=== PATIENT | male | born 1940 | race Caucasian/White ===

== ENCOUNTER 2018-04-05 06:39 | Inpatient (IN) | payer MEDICARE ==
[~2018-04-05] VITALS: Ht 177.8 cm; Wt 91.8 kg
[~2018-04-05 06:39] MED LIST: AMOXICILLIN/CL875 MG OR; AMOXICILLIN500 MG OR; ASPIRIN EC325 MG PO; CIPROFLOXACN500 MG PO; FISH OIL1000 MG PO; MULTI VIT PO; ROBITUSSIN AC10 ML PO; ROCEPHIN 1 GM1 GM IM; TESSALON200 MG PO; VITAMIN E400 UNIT PO
--- NOTE | 2018-04-05 06:51 | NUR ---
AMBULATED TO ROOM
[2018-04-05 07:34] LABS: HEMATOCRIT 44.4 % (39.0-50.0); IMMATURE GRANULOCYTES 0.3 % (0.0-5.0); MEAN CELL VOLUME 87.2 fL CALC (80.0-100.0); MEAN CORPUSCULAR HGB 30.3 pG CALC (26.0-32.0); MEAN CORPUSCULAR HGB CONC 34.7 g/L CALC (32.0-36.0); NEUT# 7.88 thou/uL (1.82-7.42); RED BLOOD COUNT 5.09 mill/uL (4.70-6.10); RED CELL DISTRI WIDTH 13.4 % (11.5-15.5)
[2018-04-05 07:35] LABS: HEMOGLOBIN 15.4 g/dl (14.0-18.0)
--- NOTE | 2018-04-05 07:37 | NUR ---
MD AT BEDSIDE AND EVALUATED PT. MEDICATED FOR N/V, IV FLUIDS INFUSING. PO AND ENVIRONMENTAL TX IN PROGRESS
[2018-04-05 07:39] LABS: INFLUENZA A NONE DETECTED (NONE DETECT); INFLUENZA B NONE DETECTED (NONE DETECT)
[2018-04-05 07:41] LABS: ALBUMIN 4.6 g/dL (3.2-5.0); ALKALINE PHOSPHATASE 105 u/l (38-126); AMYLASE 65 u/l (30-110); ANION GAP 18 (6-22 (CALC)); BILIRUBIN, TOTAL 1.3 mg/dL (0.0-1.4); BUN 17 mg/dL (8-23); BUN/CREATININE RATIO 19 (12-20 (CALC)); CARBON DIOXIDE 25 mmol/l (22-30); CHLORIDE 104 mmol/l (95-108); CREATININE 0.9 mg/dL (0.7-1.3); GFR > 60 ML/MIN (>=60 (CALC)); GFR FOR AFR.AMER. > 60 ML/MIN (>=60 (CALC)); LIPASE 37 u/l (23-300); POTASSIUM 4.3 mmol/l (3.5-5.1); SGOT/AST 26 u/l (19-48); SODIUM 142 mmol/l (137-146)
--- NOTE | 2018-04-05 08:40 | NUR ---
PT TO XRAY PER W/C
--- NOTE | 2018-04-05 08:51 | NUR ---
TEMP RETAKEN 101.5
--- NOTE | 2018-04-05 09:12 | NUR ---
FLUIDS AND ANTIBIOTICS INFUSING. FAMILY AT BEDSIDE.
[2018-04-05] MEDS ORDERED: METOPROL TAR25 MG PO (10:12)
[2018-04-05] MEDS ORDERED: LIPITOR20 M1 PO ×2 (10:12→11:48)
--- NOTE | 2018-04-05 10:17 | NUR ---
REPORT GIVEN TO MED SURG FOR CONTINUATION OF CARE.
[2018-04-05 10:25] VITALS: BP 99/49
--- NOTE | 2018-04-05 10:25 | NUR ---
PT ARRIVES TO THE FLOOR VIA STRECHER IN STABLE CONDITION WITH GLADYS FERGUSON. PT AMBULATORY WITH STEADY GAIT TO BED. FAMILY SENT TO WAITING ROOM. PT IS A&O x3 ASSESMENT COMPLETED AT THIS TIME(SEE INTERVENTIONS) LUNG SOUNDS DIMINISHED IN THE LOWER LOBES, BOWEL SOUNDS ACTIVE, HEART SOUNDS NORMAL, NO SWELLING OR EDEMA NOTED. #18 IN THE RAC FLUSHES WELL, NO REDNESS OR EDEMA NOTED. PT NOT HAVING ANY PAIN AT THIS TIME, NO NASEA OR VOMITING. ALL NEED MET AT THIS TIME. PT ORIENTED TO ROOM AND CALL KAHN SYSTEM. CALL KAHN IN REACH. WILL CONTINUE TO MONITOR.
--- NOTE | 2018-04-05 10:30 | NUR ---
PT TO FLOOR PER STRETCHER.
[2018-04-05] MEDS ORDERED: METOPROLOL SUCC25 MG PO (11:48)
--- NOTE | 2018-04-05 12:00 | NUR ---
PT EATING LUNCH AT THIS TIME. NO APPARENT DISTRESS NOTED. CALL KAHN IN REACH. WILL CONTINUE TO MONITOR.
[2018-04-05 12:11] LABS: CHOLESTEROL HDL RATIO 3.3 (<4.4 (CALC))
[2018-04-05 12:45] LABS: URINE BILIRUBIN - DIPSTICK NEGATIVE (NEGATIVE); URINE BLOOD DIPSTICK NEGATIVE (NEGATIVE); URINE CLARITY CLEAR; URINE COLOR YELLOW; URINE GLUCOSE - DIPSTICK NEGATIVE (NEGATIVE); URINE KETONE TRACE mg/dL (NEGATIVE); URINE LEUK ESTERASE NEGATIVE (NEGATIVE); URINE NITRITE - DIPSTICK NEGATIVE (Negative); URINE PH 5.5 (4.5-8.0); URINE PROTEIN - DIPSTICK NEGATIVE (NEG-TRACE); URINE UROBILINOGEN - DIPSTICK 0.2 E.U./dL (0.2)
[2018-04-05 12:55] VITALS: BP 96/53
--- NOTE | 2018-04-05 16:00 | NUR ---
PT RESTING IN BED WITH EYES CLOSED. RESPIRATIONS EVEN AND UN LABORED.IV INFUSING WELL. CALL KAHN IN REACH. WILL CONTINUE TO MONITOR.
[2018-04-05 16:45] VITALS: BP 100/59
--- NOTE | 2018-04-05 19:20 | NUR ---
BESIDE REPORT RECEIVED FROM ELLE DAVID. PT RESTING IN BED SEMI FOWLERS; ALERT AND ORIENTED; TALKATIVE. DENIES PAIN CURRENTLY. RESPIRATIONS EVEN AND UNLABORED ON ROOM AIR. CONTINUES TO HAVE THICK YELLOW SPUTUM; LUNGS ARE CLEAR. IV FLUIDS INFUSING WITHOUT DIFFICULTY; IV SITE APPEARS HEALTHY. PLAN OF CARE DISCUSSED. PT ENCOURAGED TO VERABLIZE CONCERNS. STATES UNDERSTANDING. SAFETY MEASURES IN PLACE. CALL LIGHT WITHIN REACH.
[2018-04-05 20:08] VITALS: BP 108/59
[2018-04-06 00:17] VITALS: BP 96/51
--- NOTE | 2018-04-06 00:18 | NUR ---
PT AWAKENS SPONTANEOUSLY FOR VS AND MEDICATION; LAB AT BEDSIDE. PT C/O MILD CHRONIC BACK PAIN, BUT DOES NOT REQUEST ANY PAIN MEDICATION. RESPIRATIONS EVEN AND UNLABORED. HEART RATE HAS BEEN 101-105 BPM THIS SHIFT; PT RECEIVED SOLUMEDROL AND BREATHING TREATMENT. IV FLUIDS INFUSING WITHOUT DIFFICULTY; IV SITE APPEARS HEALTHY. PT IS INDEPENDENT IN ROOM AND USES URINAL. SAFETY MEASURES IN PLACE. CALL LIGHT WITHIN REACH.
[2018-04-06 04:00] VITALS: BP 103/60; BP 120/66
--- NOTE | 2018-04-06 04:23 | NUR ---
NO ACUTE CHANGES IN CONDITION THROUGHOUT THE NIGHT. CALL LIGHT WITHIN REACH.
--- NOTE | 2018-04-06 07:01 | NUR ---
BEDSIDE REPORT RECEIVED BY GAL. PT IS SITTING IN THE SIDE OF THE BED WITH NO S/S OF DISTRESS NOTED. PT DENIES NEEDS AT THIS TIME. CALL LIGHT IN REACH.
[2018-04-06 07:27] VITALS: BP 105/59
--- NOTE | 2018-04-06 08:05 | NUR ---
PT IS SITTING IN THE SIDE OF THE BED. ASSESSMENT DONE. PT IS A&O X3. LUNGS SOUND DIMINISHED. TELE IN PLACE. PT STATED PAIN IN BACK 2/10 THAT COMES AND GOES BUT DENIES PAIN MEDICATION AT THIS TIME. NS 100ML/HR INFUSING WELL. SAFETY PRECAUTIONS REINFORCED AND CALL LIGHT IN REACH.
[2018-04-06 11:19] VITALS: BP 107/54
--- NOTE | 2018-04-06 11:48 | NUR ---
PT SITTING IN THE SIDE OF THE BED EATING HIS LUNCH. PT DENIES ANY NEEDS AT THIS TIME. TELE IN PLACE. CALL LIGHT IN REACH.
[2018-04-06 12:05] LABS: ANION GAP 12 (6-22 (CALC)); BUN 15 mg/dL (8-23); BUN/CREATININE RATIO 18 (12-20 (CALC)); CARBON DIOXIDE 23 mmol/l (22-30); CHLORIDE 110 mmol/l (95-108); CREATININE 0.8 mg/dL (0.7-1.3); GFR > 60 ML/MIN (>=60 (CALC)); GFR FOR AFR.AMER. > 60 ML/MIN (>=60 (CALC)); POTASSIUM 3.5 mmol/l (3.5-5.1); SODIUM 141 mmol/l (137-146)
[2018-04-06 15:22] VITALS: BP 106/54
--- NOTE | 2018-04-06 16:05 | NUR ---
PT IS RESTING IN BED WITH NO S/S OF DISTRESS NOTED. PT IS ALSO VISITING IN ROOM WITH FAMILY. PT DENIES ANY NEEDS AT THIS TIME. CALL LIGHT IN REACH.
[2018-04-06 19:00] VITALS: BP 117/68
--- NOTE | 2018-04-06 19:24 | NUR ---
BEDSIDE REPORT RECEIVED FROM MARTY TORRES. PT SITTING UP IN BED READING; ALERT AND ORIENTED. C/O MILD BACK PAIN. RESPIRATIONS EVEN AND UNLABORED ON ROOM AIR. STATES THAT PRODUCTIVE COUGH HAS DECREASED; NOW WITH MINIMAL THICK YELLOW SPUTUM. RESPIRATIONS EVEN AND UNLABORED. PLAN OF CARE REVIEWED. PT ENCOURAGED TO VERBALIZE CONCERNS. STATES UNDERSTANDING. SAFETY MEASURES IN PLACE. CALL LIGHT WITHIN REACH.
--- NOTE | 2018-04-07 00:14 | NUR ---
PT RESTING IN BED SEMI FOWLERS ON CELL PHONE; ALERT AND ORIENTED. VS STABLE; MEDICATION GIVEN. PT CONTINUES TO DENY PAIN. RESPIRATIONS EVEN AND UNLABORED WITH PRODUCTIVE COUGH. IV FLUIDS INFUSING WITHOUT DIFFICULTY; IV SITE APPEARS HEALTHY. INDEPENDENT IN ROOM; USES URINAL AT BEDSIDE. NO REQUESTS OR CONCERNS AT THIS TIME. PT VERBALIZES HIS APPRECIATION FOR STAFF. CALL LIGHT WITHIN REACH.
[2018-04-07 00:19] VITALS: BP 134/74
--- NOTE | 2018-04-07 00:26 | NUR ---
PT ASLEEP AT THIS TIME; AWAKENS TO TACTILE STIMULI. VS STABLE AND PT ASSISTED TO BSC TO VOID; NO EPISODES OF INCONTINENCE THIS SHIFT. DENIES PAIN. RESPIRATIONS EVEN AND UNLABORED ON ROOM AIR. IV FLUIDS INFUSING WITHOUT DIFFICULTY; IV SITE APPEARS HEALTHY. PT REMAINS ON BED ALARM AND ONE PERSON ASSIST TO BSC. SAFETY MEASURES IN PLACE. CALL LIGHT WITHIN REACH.
--- NOTE | 2018-04-07 04:22 | NUR ---
NO ACUTE CHANGES IN CONDITION THROUGHOUT THE NIGHT. CALL LIGHT WITHIN REACH.
[2018-04-07 04:31] LABS: MEAN CELL VOLUME 88.8 fL CALC (80.0-100.0); MEAN CORPUSCULAR HGB 30.5 pG CALC (26.0-32.0); MEAN CORPUSCULAR HGB CONC 34.3 g/L CALC (32.0-36.0); RED BLOOD COUNT 3.94 mill/uL (4.70-6.10); RED CELL DISTRI WIDTH 14.3 % (11.5-15.5)
[2018-04-07 04:49] LABS: ANION GAP 11 (6-22 (CALC)); BUN 16 mg/dL (8-23); BUN/CREATININE RATIO 20 (12-20 (CALC)); CARBON DIOXIDE 23 mmol/l (22-30); CHLORIDE 112 mmol/l (95-108); CREATININE 0.8 mg/dL (0.7-1.3); GFR > 60 ML/MIN (>=60 (CALC)); GFR FOR AFR.AMER. > 60 ML/MIN (>=60 (CALC)); SODIUM 142 mmol/l (137-146)
[2018-04-07 04:53] LABS: POTASSIUM 4.3 mmol/l (3.5-5.1)
[2018-04-07 04:57] VITALS: BP 145/72
--- NOTE | 2018-04-07 07:17 | NUR ---
REPORT RECEIVED FROM MARTY NESS, PT SITTING UP IN RECLINER, AWAKE, ALERT NO S/S OF DISTRESS NOTED.
[2018-04-07 08:09] VITALS: BP 138/79
--- NOTE | 2018-04-07 08:12 | NUR ---
ASSESSMENT COMPLETED; PT SITTING UP IN THE RECLINER, A/O X3; PT EXIBIT NO COUGH; VOICED NO COMPLAINS; PT VERY PLEASANT AND FRIENDLY; TALKS A LOT; RESP EVEN AND UNLABORED; LUNGS DIMINISHED IN BASES; ACTIVE BOWEL SOUNDS; PULSES STRONG; NO EDEMA NOTED; IVF INFUSING NS @ 100CC/HR, SITE APPEARS HEALTHY; TELE IN PLACE; PT COMPLAIN OF NO PAIN; SAFETY PRECAUTION REINFORCED; CALL LIGHT & URINAL IN REACH. WILL CONTINUE TO MONITOR.
--- NOTE | 2018-04-07 08:57 | NUR ---
MORNING MEDS GIVEN PER EMAR, PT HAD NO DIFFICULTY TAKING MEDS.
--- NOTE | 2018-04-07 11:05 | NUR ---
DR CESPEDES AND ATTILA CASANOVA AT BED SIDE TO DISCUSS POC; DR MARINO IVF STOPPED; BLADDER SCAN OBTAINED SHOWS 409ML URINE IN BLADDER; PT ADVISED TO URINE, OBTAINED 250CC URINE.
--- NOTE | 2018-04-07 11:50 | NUR ---
PT SITTING UP IN RECLINER VISITNG WITH HIS ; PT VOICED NO CONCERNS, HAS NO PAIN; RESP EVEN AND UNLABORED; CALL KAHN IN REACH.
[2018-04-07 12:00] VITALS: BP 132/76
--- NOTE | 2018-04-07 14:56 | NUR ---
PT SITTING UP IN RECLINER EATING A SANDWICH. NO S/S OF ANY DISTRESS NOTED.
[2018-04-07 15:00] VITALS: BP 157/82
--- NOTE | 2018-04-07 16:00 | NUR ---
FAMILY MEMBERS AT BEDSIDE ASKING QUESTIONS REGARDING PT CARE, TESTING AND PLAN OF CARE, WITH PATIENT PERMISSION ALL QUESTIONS ANSWERED AND PT & FAMILY MEMBERS VERBALIZE UNDERSTANDING. REMAINS SITTING UP IN RECLINER AND CALL KAHN WITHIN REACH
--- NOTE | 2018-04-07 17:54 | NUR ---
PT SITTING UP EDGE OF BED TAKING ON THE PHONE AND EATING SUPPER; RESP EVEN AND UNLABORED; IV SL, SITE FLUSHED FREELY;
[2018-04-07 19:38] VITALS: BP 131/60
--- NOTE | 2018-04-07 19:50 | NUR ---
PT IN BED A/O X3, RESPIRATIONS EVEN AND UNLABORED ON RA, DENIES CHEST PAIN OR DISCOMFORT. LUNG SOUNDS CLEAR WITH DIMINISHED BASES BILAT. TELE IN PLACE MONITORED IN ER. ENCOURAGED TO USE CALL LIGHT FOR ASSISTNACE, WILL CONTINUE TO MONITOR.
--- NOTE | 2018-04-07 23:37 | NUR ---
RESPIRATIONS EVEN AND UNLABORED, WAKES EASILY, PEPCID PROVIDED AT THIS TIME PER MAR. PO FLUIDS IN REACH, ENCOURAGED TO USE CALL LIGHT FOR ASSISTANCE.
[2018-04-08 00:21] VITALS: BP 141/78
--- NOTE | 2018-04-08 02:00 | NUR ---
RESTING WITH EYES CLOSED, VERY LIGHT SLEEPER, DENIES PAIN OR DISCOMFORT, RESPIRATIONS EVEN AND UNLABORED.
--- NOTE | 2018-04-08 04:40 | NUR ---
MORNING LABS DRAWN BY PRESSURE STEAMER TENDER, TOLERATED WELL.
[2018-04-08 04:45] VITALS: BP 143/85
[2018-04-08 05:26] LABS: HEMATOCRIT 37.7 % (39.0-50.0); HEMOGLOBIN 12.9 g/dl (14.0-18.0); IMMATURE GRANULOCYTES 1.7 % (0.0-5.0); MEAN CELL VOLUME 88.3 fL CALC (80.0-100.0); MEAN CORPUSCULAR HGB 30.2 pG CALC (26.0-32.0); MEAN CORPUSCULAR HGB CONC 34.2 g/L CALC (32.0-36.0); NEUT# 10.89 thou/uL (1.82-7.42); RED BLOOD COUNT 4.27 mill/uL (4.70-6.10); RED CELL DISTRI WIDTH 14.4 % (11.5-15.5)
[2018-04-08 05:43] LABS: ALKALINE PHOSPHATASE 69 u/l (38-126); ANION GAP 11 (6-22 (CALC)); BILIRUBIN, TOTAL 0.4 mg/dL (0.0-1.4); BUN 18 mg/dL (8-23); BUN/CREATININE RATIO 24 (12-20 (CALC)); CARBON DIOXIDE 26 mmol/l (22-30); CHLORIDE 109 mmol/l (95-108); CREATININE 0.8 mg/dL (0.7-1.3); GFR > 60 ML/MIN (>=60 (CALC)); GFR FOR AFR.AMER. > 60 ML/MIN (>=60 (CALC)); MAGNESIUM 2.1 mg/dL (1.6-2.3); POTASSIUM 4.2 mmol/l (3.5-5.1); SODIUM 141 mmol/l (137-146)
[2018-04-08 05:45] LABS: ALBUMIN 3.4 g/dL (3.2-5.0); SGOT/AST 51 u/l (19-48); TOTAL PROTEIN 6.3 g/dL (6.3-8.2)
--- NOTE | 2018-04-08 07:00 | NUR ---
SHIFT CHANGE REPORT FROM DANISH WILSON AWAKE ALERT AND ORIENTED SITTING UP IN RECLINER, DENIED PAIN, TELE MONITOR IN PLACE, CALL KAHN IN REACH.
[2018-04-08 08:53] VITALS: BP 158/78
[2018-04-08 11:15] VITALS: BP 117/65
--- NOTE | 2018-04-08 12:00 | NUR ---
SITTING UP IN RECLINER, ATE MEAL, ALL NEEDS ADDRESSED, ANXIOUS TO GO HOME, SPOUSE IN ROOM AT THIS TIME AWAITING D/C INSTRUCTIONS MD INFORMED PT WILL BE LEAVING TODAY.
[2018-04-08] MEDS ORDERED: IPRATROPIU0.5 MG/3 M NEB (15:36)
[2018-04-08] MEDS ORDERED: DOXYCYCL HYC100 MG PO (15:39)
[2018-04-08] MEDS ORDERED: COMBIVENT RESPIMAT IN (15:41)
--- NOTE | 2018-04-08 16:41 | NUR ---
Discharge instructions given. Patient verbalizes understanding of same. Discharged in stable condition via Ambulatory to Home with spouse. All belongings sent with pt.
== END 2018-04-08 16:42 | disposition home or self-care (01) | DRG 194 ==
LOC: ED 06:39 → ED-I 09:31 → ED 09:46 → MS2 09:47
PROVIDERS: Emergency Medicine; Nurse Practitioner Family; ADMIT Internal Medicine; ATTEND Internal Medicine Nephrology
DX: J18.9 Pneumonia, unspecified organism (principal); J44.0 Chronic obstructive pulmonary disease with (acute) lower respiratory infection; J44.1 Chronic obstructive pulmonary disease with (acute) exacerbation; E78.5 Hyperlipidemia, unspecified; I10 Essential (primary) hypertension; N40.1 Benign prostatic hyperplasia with lower urinary tract symptoms; R33.8 Other retention of urine; R35.0 Frequency of micturition; R35.1 Nocturia; R97.20 Elevated prostate specific antigen [PSA]; N28.1 Cyst of kidney, acquired; M54.9 Dorsalgia, unspecified; G89.29 Other chronic pain; Z95.3 Presence of xenogenic heart valve
CPT/HCPCS: G0378; J1650; Q9967

== ENCOUNTER → 2018-07-03 | Outpatient (REF) | payer MEDICARE ==
[~2018-07-03] MED LIST changes: +COMBIVENT RESPIMAT IN; +DOXYCYCL HYC100 MG PO; +IPRATROPIU0.5 MG/3 M NEB; +LIPITOR20 M1 PO; +METOPROL TAR25 MG PO; +METOPROLOL SUCC25 MG PO
[2018-07-03 08:35] LABS: ALKALINE PHOSPHATASE 66 u/l (38-126); ANION GAP 13 (6-22 (CALC)); BUN 19 mg/dL (8-23); BUN/CREATININE RATIO 19 (12-20 (CALC)); CALCULATED LDLCHOLESTEROL 76 mg/dL (62-129 (CALC)); CARBON DIOXIDE 31 mmol/l (22-30); CHLORIDE 103 mmol/l (95-108); CHOLESTEROL HDL RATIO 2.9 (<4.4 (CALC)); GFR > 60 ML/MIN (>=60 (CALC)); GFR FOR AFR.AMER. > 60 ML/MIN (>=60 (CALC)); HDL CHOLESTEROL 47 mg/dL (>=40); POTASSIUM 4.2 mmol/l (3.5-5.1); SGOT/AST 21 u/l (19-48); SODIUM 142 mmol/l (137-146); TOTAL CHOLESTEROL 137 mg/dl (0-199); TOTAL TRIGLYCERIDES 65 mg/dl (30-149); VLDL CHOLESTROL 13 mg/dl (0-38 (CALC))
[2018-07-03 08:40] LABS: HEMATOCRIT 43.4 % (39.0-50.0); HEMOGLOBIN 14.7 g/dl (14.0-18.0); MEAN CELL VOLUME 89.1 fL CALC (80.0-100.0); MEAN CORPUSCULAR HGB 30.2 pG CALC (26.0-32.0); MEAN CORPUSCULAR HGB CONC 33.9 g/L CALC (32.0-36.0); RED BLOOD COUNT 4.87 mill/uL (4.70-6.10); RED CELL DISTRI WIDTH 13.3 % (11.5-15.5)
[2018-07-03 09:02] LABS: TSH, 3RD GENERATION 2.74 uIU/mL (0.47 - 4.68)
[2018-07-03 09:13] LABS: ALBUMIN 4.4 g/dL (3.2-5.0)
== END | disposition home or self-care (01) ==
LOC: LAB 07:35
PROVIDERS: ATTEND Internal Medicine
DX: I10 Essential (primary) hypertension (principal); E78.49 Other hyperlipidemia; E03.9 Hypothyroidism, unspecified; R53.83 Other fatigue; E11.65 Type 2 diabetes mellitus with hyperglycemia; E55.9 Vitamin D deficiency, unspecified

== ENCOUNTER 2019-05-11 09:18 | Observation (INO) | payer MEDICARE ==
[~2019-05-11] VITALS: Ht 177.8 cm; Wt 85.5 kg
--- NOTE | 2019-05-11 09:46 | NUR ---
PT TO ROOM VIA WC
--- NOTE | 2019-05-11 10:25 | NUR ---
PT COMPLAINS OF COUGH AND COLD LIKE SYMPTOMS ON AND OFF WIOTH FEVER FOR 3 WEEKS, STATES IT COMES AND GOES BUT GOT REAL BAD LAST NIGHT SO HE CAME IN THIS AM. DAUGHTER AT SIDE
[2019-05-11 11:12] LABS: HEMATOCRIT 39.3 % (39.0-50.0); HEMOGLOBIN 13.2 g/dl (14.0-18.0); IMMATURE GRANULOCYTES 0.2 % (0.0-5.0); MEAN CORPUSCULAR HGB 30.6 pG CALC (26.0-32.0); MEAN CORPUSCULAR HGB CONC 33.6 g/L CALC (32.0-36.0); NEUT# 3.53 thou/uL (1.82-7.42); RED BLOOD COUNT 4.32 mill/uL (4.70-6.10); RED CELL DISTRI WIDTH 13.1 % (11.5-15.5)
[2019-05-11 11:30] LABS: ANION GAP 14 (6-22 (CALC)); BUN 15 mg/dL (8-23); BUN/CREATININE RATIO 15 (12-20 (CALC)); CARBON DIOXIDE 25 mmol/l (22-30); CHLORIDE 103 mmol/l (95-108); GFR > 60 ML/MIN (>=60 (CALC)); GFR FOR AFR.AMER. > 60 ML/MIN (>=60 (CALC)); POTASSIUM 4.6 mmol/l (3.5-5.1); SODIUM 138 mmol/l (137-146)
--- NOTE | 2019-05-11 11:30 | NUR ---
PT AWARE OF PLANNED ADMISSION AND IV ACCESS OBTAINED AND IV ABT ORDERED, PT TOLERATED WELL, OFFERS NO NEW COMPLAINTS, NO S/S OF DISTRESS OR DISCOMFORT, CALL KAHN WITHIN REACH.
--- NOTE | 2019-05-11 11:50 | NUR ---
AT BEDSIDE TO DISCUSS PLAN OF CARE INCLUDING ADMISSIONA ND MEDICATIONS, DAUGHTER AT BEDSIDE PT VERBALIZES UNDERSTANDING.
[2019-05-11] MEDS ORDERED: ALDACTONE25 MG PO (12:05)
[2019-05-11] MEDS ORDERED: FINASTERIDE5 MG PO (12:05)
--- NOTE | 2019-05-11 13:07 | NUR ---
STANDING AT BEDSIDE FOR URINAL USAGE.
--- NOTE | 2019-05-11 13:46 | NUR ---
REPORT CALLED TO NELIDA FERGUSON ROOM 272 AND [address]LE [id number] ASSIGNED
--- NOTE | 2019-05-11 13:50 | NUR ---
PT ARRIVED TO FLOOR VIA WC ACCOMPANIED BY ED STAFF X 1. PT TRANSFERED TO BED WITH STANDBY ASSIST. STEADY GAIT. REPORTS GENERALIZED WEAKNESS. DENIES PAIN. REPORTING OF CONCERNS ENCOURAGED. PT ORIENTED TO ROOM AND EQUIPMENT. CALL LIGHT REVIEWED AND IN REACH. PLAN OF CARE DISCUSSED. HISTORY AND ASSESSMENT COMPLETED. PT. ALERT AND ORIENTED. SKIN INTACT. LUNGS CLEAR. NON-PRODUCTIVE COUGH, REPORTS GREEN SPUTUM IN PAST DAYS AT HOME. NO SOB. NO CP. REGULAR HEART SOUNDS. #20 RAC, FREE OF REDNESS/SWELLING. PT STATES UNDERSTANDING OF INFORMATION.
--- NOTE | 2019-05-11 13:55 | NUR ---
PT TRASNPORTED TO MED SURG VIA WHEELCHAIR ALL BELONGINGS SENT WITH PT, DAUGHTER AT SIDE
[2019-05-11 14:06] VITALS: BP 109/66
--- NOTE | 2019-05-11 15:38 | NUR ---
DR. MAYNARD IN TO SEE PT AT THIS TIME. PLAN OF CARE UPDATED.
--- NOTE | 2019-05-11 18:19 | NUR ---
DAUGHTER AT BEDSIDE. PT DENIES COMPLAINTS AT THIS TIME. NS @ 100 ML/HR INFUSING #20 RAC W/O DIFFICULTY. CALL LIGHT WITHIN REACH.
[2019-05-11 18:45] VITALS: BP 141/57
--- NOTE | 2019-05-11 19:15 | NUR ---
REPORT RECEIVED FROM MARTY KRAUSE. PT RESTING IN BED, NO S/S OF DISTRESS AT THIS TIME. SAFETY PRECAUTIONS IN PLACE. WILL CONTINUE TO MONITOR.
--- NOTE | 2019-05-11 21:30 | NUR ---
PT RESTING IN BED, ALERT AND ORIENTED. RESPIRATIONS EVEN AND UNLABORED, LUNGS SOUND CLEAR. PT DENIES ANY PAIN OR DISCOMFORT. PEDAL PULSES STRONG. TELE IN PLACE. #20 RAC PATENT AND APPEARS HEALTHY. CALL KAHN WITHIN REACH. WILL CONTINEU TO MONITOR.
[2019-05-12] VITALS (7 sets, daily range): BP systolic 99–143; BP diastolic 59–78
--- NOTE | 2019-05-12 | NUR ---
PT RESTING IN BED RESPIRATIONS EVEN AND UNLABORED. NO S/S OF DISTRESS AT THIS TIME. WILL CONTINUE TO MONITOR.
[2019-05-12 05:07] LABS: HEMOGLOBIN 13.4 g/dl (14.0-18.0); IMMATURE GRANULOCYTES 0.5 % (0.0-5.0); MEAN CELL VOLUME 90.7 fL CALC (80.0-100.0); MEAN CORPUSCULAR HGB 30.4 pG CALC (26.0-32.0); MEAN CORPUSCULAR HGB CONC 33.5 g/L CALC (32.0-36.0); NEUT# 3.17 thou/uL (1.82-7.42); RED BLOOD COUNT 4.41 mill/uL (4.70-6.10); RED CELL DISTRI WIDTH 12.7 % (11.5-15.5)
--- NOTE | 2019-05-12 08:00 | NUR ---
PT SITTING ON EDGE OF BED. NO RESP DISTRESS NOTED. DENIES SHORTNESS OF BREATH OR PAIN AT THIS TIME. ASSESSMENT COMPLETED. WILL CONTINUE TO MONITOR. CALL LIGHT WITHIN REACH.
--- NOTE | 2019-05-12 12:23 | NUR ---
PT SITTING UP IN CHAIR. NO RESP. DISTRESS NOTED. NO COMPLAINTS VOICED. IV FLUIDS INFUSING WITHOUT DIFFICULTY. WILL CONTINUE TO MONITOR. CALL LIGHT WITHIN REACH.
--- NOTE | 2019-05-12 19:00 | NUR ---
PAPER BAG MAKING MACHINIST ASSUMED CARE. PT NOTED SITTING UP IN BED. ALERT AND ORIENTED. NO APPARENT DISTRESS NOTED. PT DENIES ANY PAIN OR DISCOMFORT. IV SITE APPEARS HEALTHY. DISCUSSED POC. PT VERBALIZED UNDERSTANDING. CALL LIGHT WITHIN REACH. WILL CONTINUE TO MONITOR.
--- NOTE | 2019-05-12 21:33 | NUR ---
PRN COUGH MEDICATION ADMINISTERED UPON REQUEST.
--- NOTE | 2019-05-12 23:45 | NUR ---
PT RESTING IN BED. NO APPARENT DISTRESS NOTED. PT MEDICATED ORDERED. CONTINUES TO HAVE NONPRODUCTIVE COUGH AT THIS TIME. PT DENIES ANY CURRENT WANTS OR NEEDS. CALL LIGHT WITHIN REACH. WILL CONTINUE TO MONITOR.
--- NOTE | 2019-05-13 03:20 | NUR ---
PT RESTING IN BED WITH EYES CLOSED. NO APPARENT DISTRESS NOTED. CALL LIGHT WITHIN REACH. WILL CONTINUE TO MONITOR.
[2019-05-13 03:50] VITALS: BP 121/71
[2019-05-13 05:20] LABS: HEMATOCRIT 37.7 % (39.0-50.0); HEMOGLOBIN 12.8 g/dl (14.0-18.0); MEAN CELL VOLUME 91.3 fL CALC (80.0-100.0); RED BLOOD COUNT 4.13 mill/uL (4.70-6.10); RED CELL DISTRI WIDTH 13.1 % (11.5-15.5)
--- NOTE | 2019-05-13 07:00 | NUR ---
WRITTEN REPORT RECEIVED FROM ELLE CRUZ;PT APPEARS TO BE SLEEPING IN SEMI FOWLERS POSITION;RESPIRATIONS EVEN AND UNLABORED RA;NO S/S OF DISTRESS NOTED;TELE MONITORING IN PLACE;IV FLUIDS INFUSING WITH EASE PER ORDER;ALL SAFETY PRECAUTIONS REINFORCED WITH BED IN THE LOWEST POSITION AND CALL LIGHT IN REACH;WILL CONTINUE TO MONITOR
[2019-05-13 07:56] VITALS: BP 137/75
--- NOTE | 2019-05-13 08:00 | NUR ---
PT RESTING IN SEMI FOWLERS POSITION,A&O X3;VS OBTAINED AND ASSESSMENT COMPLETED;PT DENIES ANY CURRENT PAIN OR DISCOMFORTS,PAIN SCALE AND REPORTING EDUCATED;RESPIRATIONS EVEN AND UNLABORED RA,CLEAR/DIMINISHED LUNG SOUNDS NOTED;NON-PRODUCTIVE COUGH NOTED AT TIMES;ABDOMEN SOFT ON PALPATION AND ACTIVE IN ALL 4 QUADRANTS;STRONG PEDAL PULSES;SKIN INTACT;TELE MONITORING IN PLACE;#20G TO RAC INFUSING NS @ 100ML/HR,SITE APPEARS HEALTHY;PT DENIES ANY ADDITIONAL NEEDS AT THIS TIME AND IS ENCOURAGED TO CALL FOR ASSISTANCE IF NEEDED;FALL PRECAUTIONS IN PLACE WITH BED IN THE LOWEST POSITION AND CALL LIGHT IN REACH;WILL CONTINUE TO MONITOR
[2019-05-13 10:57] VITALS: BP 135/78
--- NOTE | 2019-05-13 11:40 | NUR ---
ALEXANDER,ANRP AT BEDSIDE
--- NOTE | 2019-05-13 11:45 | NUR ---
PT RESTING IN SEMI FOWLERS POSITION;RESPIRATIONS EVEN AND UNLABORED ON RA;PT DENIES ANY CURRENT PAIN OR DISCOMFORTS;TELE MONITORING IN PLACE;IV FLUIDS INFUSING TO RAC WITH EASE AND IV ABX ADMINISTERED AT THIS TIME;PT DENIES ANY ADDITIONAL NEEDS AT THIS TIME AND IS ENCOURAGED TO CALL FOR ASSISTANCE IF NEEDED;FALL PRECAUTIONS IN PLACE WITH CALL LIGHT IN REACH;WILL CONTINUE TO MONITOR
[2019-05-13 14:30] VITALS: BP 117/72
[2019-05-13 14:45] VITALS: BP 117/72
--- NOTE | 2019-05-13 15:07 | NUR ---
AT BEDSIDE DISCUSSING POC WITH PATIENT.
--- NOTE | 2019-05-13 15:50 | NUR ---
PT OOB RESTING IN RECLINER;RESPIRATIONS EVEN AND UNLABORED ON RA;PT DENIES ANY CURRENT PAIN OR DISCOMFORTS;IV FLUIDS CONTINUE TO INFUSE TO RAC WITH EASE;TELE MONITORING IN PLACE;PT VERBALIZES UNDERSTANDING ON PLANS TO D/C HOME THIS EVENING;AWAITING DISCHARGE ORDERS;PT DENIES ANY ADDITIONAL NEEDS AT THIS TIME AND IS ENCOURAGED TO CALL FOR ASSISTANCE IF NEEDED;CALL LIGHT IN REACH;WILL CONTINUE TO MONITOR
[2019-05-13] MEDS ORDERED: KEFLEX500 M1 PO (16:45)
[2019-05-13] MEDS ORDERED: PREDNISONE50 MG PO (16:45)
[2019-05-13] MEDS ORDERED: ZITHROMAX500 MG PO (16:45)
--- NOTE | 2019-05-13 17:39 | NUR ---
ALL DISCHARGE INSTRUCTIONS PROVIDED AT THIS TIME;PT INSTRUCTED TO FOLLOW UP WITH PCP IN 1 WEEK AND TAKE RX PRESCRIBED.RX FOR ZITHRO,KEFLEX AND PREDNISONE PROVIDED AND PT VERBALIZES UNDERSTANDING;IV SITE REMOVED WITH CATHETER INTACT AND TELE D/C;PT DENIES ANY ADDITIONAL NEEDS AT THIS TIME;PT REFUSES WC FOR D/C HOME;FAMILY TO TRANSPORT PT HOME.
--- NOTE | 2019-05-13 17:41 | NUR ---
Discharge instructions given. Patient verbalizes understanding of same. Discharged in stable condition via Ambulatory to Home with family. All belongings sent with pt. PT AMBULATED TO [facility] IN STABLE CONDITION ACCOMPANIED BY FAMILY MEMBER FOR D/C HOME.
== END 2019-05-13 17:41 | disposition home or self-care (01) ==
LOC: ED 09:18 → ED-I 11:52 → ED 12:05 → MS2 12:06
PROVIDERS: Family Medicine; Nurse Practitioner Family; ADMIT Internal Medicine; ATTEND Internal Medicine
DX: J20.9 Acute bronchitis, unspecified (principal); E78.5 Hyperlipidemia, unspecified; N40.0 Benign prostatic hyperplasia without lower urinary tract symptoms; Z95.3 Presence of xenogenic heart valve; R94.31 Abnormal electrocardiogram [ECG] [EKG]; R06.00 Dyspnea, unspecified
CPT/HCPCS: G0378; J1650

== ENCOUNTER 2021-04-18 06:44 | Day surgery (SDC) | payer MEDICARE ==
[~2021-04-18] VITALS: Ht 177.8 cm; Wt 74.8 kg
[~2021-04-18 06:44] MED LIST changes: +ALDACTONE25 MG PO; +ASPIRIN81 MG PO; +FINASTERIDE5 MG PO; +KEFLEX500 M1 PO; +PREDNISONE50 MG PO; +VITAMIN7 PO; +ZITHROMAX500 MG PO
[2021-04-18 09:04] VITALS: BP 133/60
== END 2021-04-18 09:35 | disposition home or self-care (01) ==
LOC: ENDO 06:44 → ORM 09:30 → ENDO 09:35 → ORM 10:45
PROVIDERS: ATTEND Surgery
PROC: 0DJD8ZZ Inspection of Lower Intestinal Tract, Via Natural or Artificial Opening Endoscopic (ICD-10-PCS; principal; 2021-04-18)
DX: Z12.11 Encounter for screening for malignant neoplasm of colon (principal); Z86.010 Personal history of colon polyps; Z95.2 Presence of prosthetic heart valve
CPT/HCPCS: G0105

== ENCOUNTER 2022-11-03 14:43 | Observation (INO) | payer MEDICARE ==
[2022-11-03] VITALS (10 sets, daily range): BP systolic 114–160; BP diastolic 58–81
[~2022-11-03] VITALS: Ht 177.8 cm; Wt 71.2 kg
[2022-11-03 15:18] LABS: BASO% 0.2 % (0-3); EOS% 1.6 % (0-8); HEMATOCRIT 37.6 % (39.0-50.0); IMMATURE GRANULOCYTES 0.2 % (0.0-5.0); LYMPH% 15.4 % (15-41); MEAN CELL VOLUME 93.1 fL CALC (80.0-100.0); MEAN CORPUSCULAR HGB 32.2 pG CALC (26.0-32.0); MEAN CORPUSCULAR HGB CONC 34.6 g/dL CAL (32.0-36.0); MONO% 6.2 % (2-13); NEUT# 4.71 thou/uL (1.82-7.42); NEUT% 76.4 % (42-76); RED BLOOD COUNT 4.04 mill/uL (4.70-6.10); RED CELL DISTRI WIDTH 12.4 % (11.5-15.5)
[2022-11-03 15:37] LABS: ALBUMIN 4.2 g/dL (3.2-5.0); ALKALINE PHOSPHATASE 53 u/l (38-126); BUN 22 mg/dL (8-23); BUN/CREATININE RATIO 17 (12-20 (CALC)); CHLORIDE 106 mmol/l (95-108); CREATININE 1.3 mg/dL (0.7-1.3); GFR FOR AFR.AMER. > 60 ML/MIN (>=60 (CALC)); GFR OTHER RACES 53 ML/MIN (>=60 (CALC)); POTASSIUM 4.3 mmol/l (3.5-5.1); SODIUM 140 mmol/l (137-146); TOTAL PROTEIN 6.5 g/dL (6.3-8.2)
[2022-11-03 15:42] LABS: ANION GAP 12 (6-22 (CALC)); CARBON DIOXIDE 26 mmol/l (22-30)
[2022-11-03 15:50] LABS: BILIRUBIN, TOTAL 1.2 mg/dL (0.2-1.3); SGOT/AST 92 u/l (19-48)
[2022-11-03 17:13] LABS: URINE BILIRUBIN - DIPSTICK NEGATIVE (NEGATIVE); URINE BLOOD DIPSTICK NEGATIVE (NEGATIVE); URINE COLOR YELLOW; URINE GLUCOSE - DIPSTICK NEGATIVE (NEGATIVE); URINE KETONE TRACE mg/dL (NEGATIVE); URINE LEUK ESTERASE NEGATIVE (NEGATIVE); URINE NITRITE - DIPSTICK NEGATIVE (Negative); URINE PROTEIN - DIPSTICK NEGATIVE (NEG-TRACE); URINE SPECIFIC GRAVITY 1.015
[2022-11-03] MEDS ORDERED: OMEPRAZOLE DR40 MG (17:23)
[2022-11-03] MEDS ORDERED: BUSPAR5 MG PO (17:24)
[2022-11-03] MEDS ORDERED: TRAZODONE100 MG PO (17:26)
[2022-11-03] MEDS ORDERED: NEURONTIN300 MG PO (17:27)
[2022-11-04] VITALS: BP 114/68
[2022-11-04 03:09] VITALS: BP 112/63
[2022-11-04 04:00] VITALS: BP 112/63
[2022-11-04 05:13] LABS: BASO% 0.2 % (0-3); EOS% 3.6 % (0-8); LYMPH% 20.9 % (15-41); MEAN CELL VOLUME 92.9 fL CALC (80.0-100.0); MEAN CORPUSCULAR HGB 31.8 pG CALC (26.0-32.0); MEAN CORPUSCULAR HGB CONC 34.2 g/dL CAL (32.0-36.0); MONO% 8.3 % (2-13); NEUT# 3.39 thou/uL (1.82-7.42); RED BLOOD COUNT 4.09 mill/uL (4.70-6.10); RED CELL DISTRI WIDTH 12.3 % (11.5-15.5)
[2022-11-04 05:26] LABS: ALBUMIN 3.8 g/dL (3.2-5.0); ALKALINE PHOSPHATASE 71 u/l (38-126); ANION GAP 12 (6-22 (CALC)); BILIRUBIN, TOTAL 0.8 mg/dL (0.2-1.3); BUN 22 mg/dL (8-23); BUN/CREATININE RATIO 21 (12-20 (CALC)); CARBON DIOXIDE 28 mmol/l (22-30); CHLORIDE 104 mmol/l (95-108); GFR FOR AFR.AMER. > 60 ML/MIN (>=60 (CALC)); GFR OTHER RACES > 60 ML/MIN (>=60 (CALC)); MAGNESIUM 2.2 mg/dL (1.6-2.3); SGOT/AST 140 u/l (19-48); SODIUM 140 mmol/l (137-146); TOTAL PROTEIN 5.8 g/dL (6.3-8.2)
[2022-11-04 07:35] VITALS: BP 120/63
[2022-11-04] MEDS ORDERED: NEURONTIN300 MG PO (10:06)
== END 2022-11-04 12:00 | disposition home or self-care (01) ==
LOC: ED 14:43 → MS2 16:29
PROVIDERS: Family Medicine; ADMIT Internal Medicine; ATTEND Internal Medicine
DX: R07.9 Chest pain, unspecified (principal); I44.7 Left bundle-branch block, unspecified; F41.9 Anxiety disorder, unspecified; G62.9 Polyneuropathy, unspecified; Z95.3 Presence of xenogenic heart valve